=== PATIENT | male | born 1995 | race African-American/Black ===

== ENCOUNTER 2016-11-25 15:08 | Emergency (ER) | payer OTHER ==
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
[2016-11-25] MEDS ORDERED: AZITHROMYCIN 250 MG TABLET PO ONE (16:58)
[2016-11-25] MEDS ORDERED: Lidocaine 1% 5ml(IM or SUTURE)(PAIN CLINIC) ONE (17:04)
[2016-11-25 17:52] VITALS: BP 145/84
== END 2016-11-25 17:51 | disposition home or self-care (01) ==
LOC: ED 15:08
DX: T76.21XA Adult sexual abuse, suspected, initial encounter (principal)
CPT/HCPCS: 36415; 86703; 86706; 86803; J0696; 96372; 99284

== ENCOUNTER 2018-10-04 10:39 | Emergency (ER) | payer OTHER ==
[2018-10-04 11:52] LABS: eGFR (Non-African) > 60
[2018-10-04 11:53] LABS: BASOPHILS % 0 % (0-2); EOSINOPHILS % 3 % (0-7); MEAN CORPUSCULAR HEMOGLOBIN 31.6 pg (28.0-34.0); MONOCYTES % 3 % (0-11); SEGMENTED NEUTROPHILS % 44 % (39-79)
--- NOTE | 2018-10-04 12:53 | ED Physician Documentation ---
Psychological Disorders - HISTORIAN Historian: patient, other ([facility] Caregiver) - HPI Stated Complaint: agression Chief Complaint: Psychological Disorder (SI/HI) Additional Information: Patient is a 23-year-old male that presents to the ER with caregiver from the [facility]. Caregiver states that since the beginning of September patient has become more aggressive, increased agitation, running away, physical encounters with staff, and trying to harm himself by jumping out in front of vehicles. She states that patient has stated that he wanted to hurt his roommate. Over the last month patient's psychiatrist has increased his Haldol and Depakote. Caregiver states that he broke a mirror and tried to cut himself with it (superficial cuts to arm). He has appointment with his psychiatrist in October. She states that he has never been like this but since the beginning of the month he has been challenging. Onset: days ago (Beginning of September) Duration: gradual onset Intent: suicide, prior thoughts of suicide Severity: moderate Situational Problems: Yes (He does not like roommate) Further Comments: no - Associated Symptoms Symptoms: depressed, angry, frustrated (per "staff"), agitated, hostile Suicidal: attempt (throwing self in front of cars- per staff) Mechanism: other (picking up glass to cut self/jumping in front of vehicles) - ROS CONST: none NEURO/PSYCH: anxiety, depression EYES/ENT: none CVS/RESP: none GI/: denies: nausea, vomiting MS/SKIN/LYMPH: denies: rash - PAST HX Psychiatric problems: bipolar disorder, depression, prior suicide attempt, psychiatric problems DVT/PE Risk Factors: none Lung, Cardiac, DM: asthma, hypertension, other (HLD) Surgical History: no surgical history Immunizations: UTD Allergies/Adverse Reactions: Allergies Allergy/AdvReac Type Severity Reaction Status Date / Time No Known Allergies Allergy Verified 10/04/18 11:14 Home Medications: Ambulatory Orders Medication Instructions Recorded 0.9 % Sodium Chloride [Nasal Mist] 2 sprays NS PRN PRN 11/25/16 Acetaminophen [Tylenol] 325 mg PO Q4 PRN 11/25/16 Carbamazepine [Tegretol] 200 mg PO TID 11/25/16 Citalopram Hydrobromide [Celexa] 20 mg PO QD 11/25/16 Divalproex Sodium [Depakote] 500 mg PO BID 11/25/16 Docusate Sodium [Colace] 100 mg PO BID 11/25/16 Montelukast Sodium [Singulair] 10 mg PO HS 11/25/16 Propranolol HCl [Inderal] 10 mg PO QDAY 11/25/16 Risperidone [Risperdal] 2 mg PO TID 11/25/16 Atorvastatin Calcium [Lipitor] 10 mg PO DAILY 10/04/18 Divalproex Sodium [Depakote] 250 mg PO DAILY 10/04/18 Fexofenadine HCl [Ruchi] 180 mg PO DAILY 10/04/18 Fluticasone/Salmeterol [Advair 1 puff INH BID 10/04/18 250-50 Diskus] Hydroxyzine HCl 50 mg PO QID PRN 10/04/18 Medroxyprogesterone Acetate 5 mg PO DAILY 10/04/18 [Provera] traZODone HCL [Desyrel] 50 mg PO HS 10/04/18 - Social HX Smoking History: non-smoker Marital Status: single Drug Use: none - Family HX Family HX: mental illness - VITAL SIGNS Vital Signs: Vital Signs Temp Pulse Resp BP Pulse Ox 98.5 F 61 16 130/58 98 10/04/18 10:39 10/04/18 17:55 10/04/18 17:55 10/04/18 17:55 10/04/18 17:55 Progress - Progress Progress: 21:00 We have been updating staff all afternoon Sod Farmer has been working on appropriate transfer- no beds are open [facility] states they are looking at patients chart and will let us know as soon as Psychiatrist looks at it Patient has received lunch and dinner. 22:00 We will go ahead and admit patient to observation. If [facility] calls and accepts I will transfer at that time- caregiver is at the bedside and will stay. ED Results Lab/Radiology - Lab Results Lab Results: Lab Results 10/04/18 10/04/18 10/04/18 12:15 12:15 12:15 WBC RBC Hgb Hct MCV MCH MCHC RDW Plt Count Seg Neutrophils % Band Neutrophils % Lymphocytes % Monocytes % Eosinophils % Basophils % Reactive Lymphocytes Sodium Potassium Chloride Carbon Dioxide BUN Creatinine Estimated Creat Clear Est GFR ( Amer) Est GFR (Non-Af Amer) Glucose Calcium Total Bilirubin AST ALT Alkaline Phosphatase Total Protein Albumin Urine Color Yellow Cancelled (YELLOW) Urine Appearance Clear Cancelled (CLEAR) Urine pH 7.5 Cancelled (5.0 - 8.0) Ur Specific [place] 1.020 Cancelled (1.010-1.030) Urine Protein Negative mg/dL mg/dL Cancelled (NEGATIVE) Urine Ketones Negative mg/dL mg/dL Cancelled (NEGATIVE) Urine Occult Blood Negative Cancelled (NEGATIVE) Urine Nitrite Negative Cancelled (NEGATIVE) Urine Bilirubin Negative Cancelled (NEGATIVE) Urine Urobilinogen 0.2 Eu Eu Cancelled (0.2-1.0) Ur Leukocyte Esterase Negative Cancelled (NEGATIVE) Urine RBC Cancelled Urine WBC Cancelled Urine WBC Clumps Cancelled Ur Squamous Epith Cells Cancelled Ur Transition Epith Cell Cancelled Ur Renal Epithelial Cell Cancelled Ammonium Urate Crystals Cancelled Calcium Carbonate Cryst Cancelled Calcium Phosphate Cryst Cancelled Calcium Oxalate Crystal Cancelled Leucine Crystals Cancelled Cystine Crystals Cancelled Uric Acid Crystals Cancelled Triple Phos Crystals Cancelled Cholesterol Crystals Cancelled Tyrosine Crystals Cancelled Hippuric Acid Crystals Cancelled Bilirubin Crystals Cancelled Other Crystals Cancelled Amorphous Sediment Cancelled Urine Bacteria Cancelled Hyaline Casts Cancelled Granular Casts Cancelled Waxy Casts Cancelled RBC Casts Cancelled WBC Casts Cancelled Other Casts Cancelled Urine Starch Cancelled Urine Mucus Cancelled Urine Trichomonas Cancelled Urine Yeast Cancelled Urine Sperm Cancelled Urine Glucose Negative mg/dL mg/dL Cancelled (NEGATIVE) Opiates Screen Negative ng/mL ng/mL (<300) Oxycodone Screen Negative ng/mL ng/mL (<100) Methadone Screen Negative ng/mL ng/mL (<200) Ur Barbiturates Screen Negative ng.mL ng.mL (<200) Tricyclic Antidepress Negative ng/mL ng/mL (<300) Phencyclidine Screen Negative ng/mL ng/mL (< 25) Amphetamines Screen Negative ng/mL ng/mL (<500) U Methamphetamines Scrn Negative ng/mL ng/mL (<500) MDMA Negative ng/mL ng/mL (<500) Benzodiazepines Screen Negative ng/mL ng/mL (<150) Urine Cocaine Screen Negative ng/mL ng/mL (<150) U Cannabinoids Screen Negative ng/mL ng/mL (< 50) 10/04/18 10/04/18 11:10 11:03 WBC 4.30 K/ul K/ul (4.00-12.00) RBC 4.42 M/ul M/ul (3.90-5.20) Hgb 14.0 g/dL g/dL (12.0-18.0) Hct 42.2 % % (37.0-53.0) MCV 96.0 fl fl (80.0-100.0) MCH 31.6 pg pg (28.0-34.0) MCHC 33.1 g/dL g/dL (30.0-36.0) RDW 14.6 % H % (11.3-14.3) Plt Count 153 K/mm3 K/mm3 (130-400) Seg Neutrophils % 44 % % (39-79) Band Neutrophils % 0 % % (0-12) Lymphocytes % 36 % % (16-50) Monocytes % 3 % % (0-11) Eosinophils % 3 % % (0-7) Basophils % 0 % % (0-2) Reactive Lymphocytes 14 % H % (0-5) Sodium 139 mmol/L mmol/L (136-145) Potassium 4.7 mmol/L mmol/L (3.5-5.1) Chloride 103 mmol/L mmol/L (98-107) Carbon Dioxide 30 mmol/L mmol/L (22-30) BUN 12 mg/dL mg/dL (9-20) Creatinine 0.79 mg/dL mg/dL (0.66-1.25) Estimated Creat Clear 193 Est GFR ( Amer) > 60 (60 - ) Est GFR (Non-Af Amer) > 60 (60 - ) Glucose 109 mg/dL H mg/dL (74-106) Calcium 9.2 mg/dL mg/dL (8.4-10.2) Total Bilirubin < 0.1 mg/dL L mg/dL (0.2-1.3) AST 25 U/L U/L (15-46) ALT 9 U/L L U/L (13-69) Alkaline Phosphatase 67 U/L U/L (38-126) Total Protein 7.9 g/dL g/dL (6.3-8.2) Albumin 4.2 g/dL g/dL (3.5-5.0) Urine Color Urine Appearance Urine pH Ur Specific [place] Urine Protein Urine Ketones Urine Occult Blood Urine Nitrite Urine Bilirubin Urine Urobilinogen Ur Leukocyte Esterase Urine RBC Urine WBC Urine WBC Clumps Ur Squamous Epith Cells Ur Transition Epith Cell Ur Renal Epithelial Cell Ammonium Urate Crystals Calcium Carbonate Cryst Calcium Phosphate Cryst Calcium Oxalate Crystal Leucine Crystals Cystine Crystals Uric Acid Crystals Triple Phos Crystals Cholesterol Crystals Tyrosine Crystals Hippuric Acid Crystals Bilirubin Crystals Other Crystals Amorphous Sediment Urine Bacteria Hyaline Casts Granular Casts Waxy Casts RBC Casts WBC Casts Other Casts Urine Starch Urine Mucus Urine Trichomonas Urine Yeast Urine Sperm Urine Glucose Opiates Screen Oxycodone Screen Methadone Screen Ur Barbiturates Screen Tricyclic Antidepress Phencyclidine Screen Amphetamines Screen U Methamphetamines Scrn MDMA Benzodiazepines Screen Urine Cocaine Screen U Cannabinoids Screen - Orders Orders: ED Orders Category Date Time Status CBC/PLATELET/DIFF Routine Lab 10/04/18 11:10 Completed CMP Routine Lab 10/04/18 11:03 Completed UA MACRO DIP ONLY Routine Lab 10/04/18 12:15 Completed UDS [DRUG SCREEN URINE MEDICAL ONLY] Routine Lab 10/04/18 12:15 Completed Psych Physical Exam - Physical Exam General Appearance: no acute distress, alert ENT: nml ENT inspection, pharynx nml, head atraumatic Eyes: PERRL Mental Status: depressed affect / mood Suicide Attempts: denies (denies suicide but has attempted) Orientation: nml x3 Sensory, Motor: nml motor response, nml sensory response, nml gait Neck/Back: normal inspection, supple Respiratory: no resp distress, breath sounds normal CVS: reg rate & rhythm, heart sounds normal, equal pulses Abdomen: non-tender, nml bowel sounds Skin: warm/dry, normal color Extremities: non-tender, normal range of motion Discharge Clincal Impression: Suicidal ideation, Suicide attempt Referrals: Joe Gold [Primary Care Provider] - 2 Days Comments: Will admit patient observation- if [facility] calls back we will transfer at that time If [facility] declines transfer- we will get with Psychiatrist in the morning and set up appointment to clear patient- [employer] administrator aware of plan. Condition: Stable Decision to Admit: [id number] Decision Time: 22:12
[2018-10-04 13:57] LABS: CANNABINOIDS NEGATIVE ng/mL (< 50); METHYLENEDIOXYMETHAMPHETAMINE NEGATIVE ng/mL (<500)
[2018-10-04 14:19] LABS: APPEARANCE,URINE CLEAR (CLEAR); COLOR,URINE YELLOW (YELLOW); OCCULT BLOOD,URINE NEGATIVE (NEGATIVE); PH URINE 7.5 (5.0 - 8.0); UROBILINOGEN URINE 0.2 Eu (0.2-1.0)
[2018-10-04 17:56] VITALS: BP 130/58
== END 2018-10-04 22:12 | disposition other institution (70) ==
LOC: ED 10:39
DX: S40.819A Abrasion of unspecified upper arm, initial encounter (principal); X78.0XXA Intentional self-harm by sharp glass, initial encounter; T14.91XA Suicide attempt, initial encounter; Y93.89 Activity, other specified; Y92.199 Unspecified place in other specified residential institution as the place of occurrence of the external cause; Z79.899 Other long term (current) drug therapy
CPT/HCPCS: 36415; 80053; 80377; 81002; 85025; 99285; G0481

== ENCOUNTER 2019-03-29 08:50 | Emergency (ER) | payer OTHER ==
--- NOTE | 2019-03-29 09:03 | ED Physician Documentation ---
Epistaxis - HISTORIAN Historian: patient, other (caregiver) - HPI Chief Complaint: Epistaxis (Right nare) Additional Information: Patient is a 24 year old male from the "assisted living home". Presents to the clinic with caregiver. Stated that patient had a bloody nose last night and again this morning. Obvious blood in right nare; no dripping; controlled. Patient has been picking in nose and has not been using his nose spray. Onset: hours Timing: still present, better Location: right Severity: mild Associated Symptoms: denies: recent injury, recent illness - ROS MS/SKIN/LYMPH: denies: excessive bruising, bleeding from gums EYES/ENT: none GI/: denies: black stool, problems urinating CVS/RESP: denies: chest pain, difficulty breathing NEURO/PSYCH: denies: dizziness, anxiety, depression - PAST HX Past History: hypertension Other History: other (asthma, GERD, Bipolar, HPD) Immunizations: UTD Allergies/Adverse Reactions: Allergies Allergy/AdvReac Type Severity Reaction Status Date / Time No Known Allergies Allergy Verified 03/29/19 09:16 Home Medications: Ambulatory Orders Medication Instructions Recorded 0.9 % Sodium Chloride [Nasal Mist] 2 sprays NS PRN PRN 11/25/16 Acetaminophen [Tylenol] 325 mg PO Q4 PRN 11/25/16 Citalopram Hydrobromide [Celexa] 20 mg PO QD 11/25/16 Divalproex Sodium [Depakote] 500 mg PO BID 11/25/16 Docusate Sodium [Colace] 100 mg PO BID 11/25/16 Montelukast Sodium [Singulair] 10 mg PO HS 11/25/16 Propranolol HCl [Inderal] 10 mg PO QDAY 11/25/16 Risperidone [Risperdal] 2 mg PO TID 11/25/16 carBAMazepine [Tegretol] 200 mg PO TID 11/25/16 Atorvastatin Calcium [Lipitor] 10 mg PO DAILY 10/04/18 Divalproex Sodium [Depakote] 250 mg PO DAILY 10/04/18 Fexofenadine HCl [Ruchi] 180 mg PO DAILY 10/04/18 Fluticasone Propion/Salmeterol 1 puff INH BID 10/04/18 [Advair 250-50 Diskus] Hydroxyzine HCl 50 mg PO QID PRN 10/04/18 Medroxyprogesterone Acetate 5 mg PO DAILY 10/04/18 [Provera] traZODone HCL [Desyrel] 50 mg PO HS 10/04/18 - SOCIAL HX Smoking History: non-smoker Alcohol Use: none Drug Use: none - FAMILY HX Family History: No - VITAL SIGNS Vital Signs: Vital Signs Temp Pulse Resp BP Pulse Ox 119/64 10/05/18 14:52 - REVIEWED ASSESSMENTS Nursing Assessment Reviewed: Yes Vitals Reviewed: Yes Epistaxis Physical Exam - EXAM General Appearance: no acute distress, alert Nose: dried blood, active bleeding (R) (minimal fresh blood in right nare; dry scabbing to the right nare), minimal Head/Neck: atraumatic Eyes/Ears: eyes nml inspection, PERRL, TM nml Mouth: lips nml, gums nml, pharynx nml Neuro/Psych: oriented x3, neuro intact, mood/affect nml Respiratory: breath sounds normal CVS: heart sounds normal Skin: nml color Discharge Clincal Impression: Epistaxis not due to trauma Referrals: Joe Gold [Primary Care Provider] - 2 Days Additional Instructions: Nasal cavity is dry- try not to pick nose Use saline nasal spray 3-4 times a day to keep nose moist (Use your nasal mist that you have at home) Follow up with PCP as needed Condition: Good Disposition: 01 HOME, SELF-CARE Decision to Admit: NO Decision Time: 13:56
[2019-03-29] MEDS: OXYMETAZOLINE HCL 0.05% NASAL SPRAY 30 ML IEN ONE (09:10)
[2019-03-29 09:16] VITALS: BP 154/90
== END 2019-03-29 09:24 | disposition home or self-care (01) ==
LOC: ED 08:50
DX: R04.0 Epistaxis (principal)
CPT/HCPCS: 99283; 99284